=== PATIENT | female | born 1970 | race African-American/Black ===

== ENCOUNTER 2020-10-02 02:57 | Emergency (ER) | payer SELFPAY ==
--- NOTE | 2020-10-02 04:29 | EDPHYS ---
Physician Documentation [facility] Name: Stephie Dillard Age: 49 yrs Sex: Female : 1970 Arrival Date: 10/02/2020 Time: 03:00 Bed 19 Private MD: ED Physician Klaus Rico HPI: 10/02 04:00 This 49 yrs old Black Female presents to ER via Ambulatory with complaints of rn Congestion, cough, Breathing Difficulty. 04:00 The patient has shortness of breath at rest, with light activity. Onset: The rn symptoms/episode began/occurred 1 week(s) ago. Duration: The symptoms are intermittent. The patient's shortness of breath is aggravated by exertion, light activity, is alleviated by rest. Associated signs and symptoms: Pertinent positives: productive cough, Pertinent negatives: chest pain, fever, hemoptysis. Severity of symptoms: At their worst the symptoms were moderate in the emergency department the symptoms have improved. The patient has experienced a previous episode. The patient has not recently seen a physician. Patient reports approximately 1 week of cough congestion and trouble breathing. Patient is a longtime smoker. No diagnosis of COPD. Denies chest pain or hemoptysis. Has taken 2 Covid test in the last 2 weeks that are both negative last one was yesterday. No history of blood clot.. Historical: - Allergies: 03:31 Cipro; em - PMHx: 03:31 Anemia; Anxiety; Hypothyroidism; em - PSHx: 03:31 uterine ablation; em - Immunization history:: Adult Immunizations up to date, Client reports receiving the 2nd dose of the Covid vaccine. - Social history:: Smoking status: Patient reports the use of cigarette tobacco products, smokes one pack cigarettes per day. - Family history:: not pertinent. - Hospitalizations: : No recent hospitalization is reported. ROS: 04:00 Constitutional: Negative for fever, chills, and weight loss, Eyes: Negative for injury, rn pain, redness, and discharge, Neck: Negative for injury, pain, and swelling, Cardiovascular: Negative for chest pain, palpitations, and edema, Respiratory: Positive for cough and shortness of breath Abdomen/GI: Negative for abdominal pain, nausea, vomiting, diarrhea, and constipation, Back: Negative for injury and pain, MS/Extremity: Negative for injury and deformity, Skin: Negative for injury, rash, and discoloration, Neuro: Negative for headache, weakness, numbness, tingling, and seizure. Exam: 04:00 Constitutional: This is a well developed, well nourished patient who is awake, alert, rn and in no acute distress. Head/Face: Normocephalic, atraumatic. Eyes: Periorbital areas with no swelling, redness, or edema. ENT: No stridor Cardiovascular: Regular rate and rhythm . No pulse deficits. Respiratory: Mild tachypnea, no retractions Skin: Warm, dry MS/ Extremity: Pulses equal, no cyanosis. Neuro: Awake and alert, GCS 15 Vital Signs: 03:28 BP 145 / 95; Pulse 91; Resp 20; Temp 97.8; Pulse Ox 98% on R/A; Weight 107.95 kg; em Height 5 ft. 8 in. (172.72 cm); Pain 0/10; 05:04 BP 128 / 93; Pulse 73; Resp 20; Temp 98.6(O); Pulse Ox 97% on R/A; Pain 0/10; bs2 03:28 Body Mass Index 36.19 (107.95 kg, 172.72 cm) em MDM: 03:51 Patient medically screened. rn 04:28 Differential diagnosis: Bronchitis pneumonia, Pneumothorax. Data reviewed: vital signs, rn nurses notes, radiologic studies, plain films, and as a result, I will discharge patient. Counseling: I had a detailed discussion with the patient and/or guardian regarding: the historical points, exam findings, and any diagnostic results supporting the discharge/admit diagnosis, radiology results, the need for outpatient follow up, to return to the emergency department if symptoms worsen or persist or if there are any questions or concerns that arise at home. Response to treatment: the patient's symptoms have mildly improved after treatment, and as a result, I will discharge patient. Special discussion: I discussed with the patient/guardian in detail that at this point there is no indication for admission to the hospital. It is understood, however, that if the symptoms persist or worsen the patient needs to return immediately for re-evaluation. 10/02 03:34 Order name: XRAY Chest (1 view) rn Administered Medications: 04:36 Drug: Xopenex (levalbuterol) 1.25 mg Route: Inhalation; bs2 05:05 Follow up: Response: No adverse reaction bs2 04:36 Drug: Zithromax (azithromycin) 500 mg Route: PO; bs2 05:05 Follow up: Response: No adverse reaction bs2 Disposition Summary: 10/02/20 04:29 Discharge Ordered Location: Home rn Problem: new rn Symptoms: have improved rn Condition: Stable rn Diagnosis - Acute bronchitis, unspecified rn Followup: rn - With: Private Physician - When: As needed - Reason: Recheck today's complaints, Re-evaluation by your physician Discharge Instructions: - Discharge Summary Sheet rn - Acute Bronchitis, Adult rn Forms: - Medication Reconciliation Form rn - Thank You Letter rn - 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 Day 2, 3, 4 , 5 take one (1) tablet once daily.; 6 tablet; Refills: 0, Product Selection Permitted - albuterol sulfate 90 mcg/actuation Inhalation HFA aerosol inhaler - inhale 2 puff by INHALATION route every 4 hours As needed; 1 Pump; Refills: 0, rn Product Selection Permitted Signatures: Dispatcher [employer] Brenton Washburn RN RN em Klaus Rico MD MD rn Smith, Bridget, RN RN bs2 Corrections: (The following items were deleted from the chart) 03:32 03:31 Allergies: unknown antibotic causes facial swelling and muscle spasms; em em
--- NOTE | 2020-10-02 04:29 | ER ---
Nurse's Notes [facility] Name: Stephie Dillard Age: 49 yrs Sex: Female : 1970 Arrival Date: 10/02/2020 Time: 03:00 Bed 19 Private MD: Diagnosis: Acute bronchitis, unspecified Presentation: 10/02 03:28 Chief complaint: Patient states: nasal congestion and productive cough since Tuesday, em had covid test done yesterday evening and it was negative, reports shortness of breath. Coronavirus screen: Client denies travel out of the [place] in the last 14 days. difficulty breathing. Ebola Screen: Patient negative for fever greater than or equal to 101.5 degrees Fahrenheit, and additional compatible Ebola Virus Disease symptoms Patient denies exposure to infectious person. Patient denies travel to an Ebola-affected area in the 21 days before illness onset. No symptoms or risks identified at this time. Initial Sepsis Screen: Does the patient meet any 2 criteria? HR > 90 bpm. No. Patient's initial sepsis screen is negative. Does the patient have a suspected source of infection? Yes: Productive cough/pneumonia. Risk Assessment: Do you want to hurt yourself or someone else? Patient reports no desire to harm self or others. Onset of symptoms was October 02, 2020. 03:28 Method Of Arrival: Ambulatory em 03:28 Acuity: KENJI 3 em Historical: - Allergies: 03:31 Cipro; em - PMHx: 03:31 Anemia; Anxiety; Hypothyroidism; em - PSHx: 03:31 uterine ablation; em - Immunization history:: Adult Immunizations up to date, Client reports receiving the 2nd dose of the Covid vaccine. - Social history:: Smoking status: Patient reports the use of cigarette tobacco products, smokes one pack cigarettes per day. - Family history:: not pertinent. - Hospitalizations: : No recent hospitalization is reported. Screenin:00 Abuse screen: Denies threats or abuse. Denies injuries from another. Nutritional bs2 screening: No deficits noted. Tuberculosis screening: No symptoms or risk factors identified. Fall Risk None identified. Assessment: 04:00 General: Appears in no apparent distress. uncomfortable, obese, well groomed, well bs2 developed, well nourished, Behavior is calm, cooperative, appropriate for age. General: pt states congestion, productive cough and progressing SOB for the last week, pt has had 2 covid test last one yesterday both negative. . Pain: Denies pain. Neuro: No deficits noted. Cardiovascular: Capillary refill < 3 seconds Patient's skin is warm and dry. Respiratory: Airway is patent Respiratory effort is even, unlabored, Respiratory pattern is regular, symmetrical, tachypnea Sputum is thick, yellow Breath sounds are coarse bilaterally. Parent/caregiver reports the patient having shortness of breath at rest on exertion cough that is productive, pain with cough. GI: No signs and/or symptoms were reported involving the gastrointestinal system. : No signs and/or symptoms were reported regarding the genitourinary system. EENT: No signs and/or symptoms were reported regarding the EENT system. Derm: No signs and/or symptoms reported regarding the dermatologic system. Musculoskeletal: No signs and/or symptoms reported regarding the musculoskeletal system. Vital Signs: 03:28 BP 145 / 95; Pulse 91; Resp 20; Temp 97.8; Pulse Ox 98% on R/A; Weight 107.95 kg; em Height 5 ft. 8 in. (172.72 cm); Pain 0/10; 05:04 BP 128 / 93; Pulse 73; Resp 20; Temp 98.6(O); Pulse Ox 97% on R/A; Pain 0/10; bs2 03:28 Body Mass Index 36.19 (107.95 kg, 172.72 cm) em ED Course: 03:00 Patient arrived in ED. es 03:31 Triage completed. em 03:31 Arm band placed on. em 03:51 Klaus Rico MD is Attending Physician. rn 04:00 Patient has correct armband on for positive identification. Bed in low position. Call bs2 light in reach. Side rails up X 1. Pulse ox on. NIBP on. 04:00 No provider procedures requiring assistance completed. bs2 04:13 XRAY Chest (1 view) In Process Unspecified. EDMS 04:36 Iveth Smith, RN is Primary Nurse. bs2 04:57 Patient did not have IV access during this emergency room visit. bs2 Administered Medications: 04:36 Drug: Xopenex (levalbuterol) 1.25 mg Route: Inhalation; bs2 05:05 Follow up: Response: No adverse reaction bs2 04:36 Drug: Zithromax (azithromycin) 500 mg Route: PO; bs2 05:05 Follow up: Response: No adverse reaction bs2 Outcome: 04:29 Discharge ordered by . rn 05:04 Discharged to home ambulatory. bs2 05:04 Condition: improved 05:04 Discharge instructions given to patient, Instructed on discharge instructions, follow up and referral plans. medication usage, Demonstrated understanding of instructions, follow-up care, medications, Prescriptions given X 2. 05:05 Patient left the ED. bs2 Signatures: Dispatcher [employer] Leslee Steve Edgar, RN RN em Klaus Rico MD MD rn Smith, Bridget, RN RN bs2 Corrections: (The following items were deleted from the chart) 03:32 03:31 Allergies: unknown antibotic causes facial swelling and muscle spasms; em em
[2020-10-02] MEDS ORDERED: LEVALBUTEROL 1.25 MG/3 ML NEB ONE (04:53)
[2020-10-02] MEDS ORDERED: AZITHROMYCIN 250 MG TAB ONE (04:53)
[2020-10-02 05:12] VITALS: BP 128/93; TEMP 98.6; O2SAT 97
--- NOTE | 2020-10-02 07:13 | RAD REPORT ---
EXAM DESCRIPTION: RAD - Chest Single View - 10/02/2020 4:13 am CLINICAL HISTORY: COUGH COMPARISON: No comparisons FINDINGS: No evidence of edema or pneumonia. The heart size is within normal limits.No acute osseous abnormality. No significant pleural effusions or pneumothorax. IMPRESSION: No acute cardiopulmonary disease.
== END 2020-10-02 05:05 | disposition home or self-care (01) ==
LOC: ER 02:57
DX: J20.9 Acute bronchitis, unspecified (principal); F17.210 Nicotine dependence, cigarettes, uncomplicated; Z88.1 Allergy status to other antibiotic agents
CPT/HCPCS: 71045; 99284

== ENCOUNTER 2022-03-02 19:46 | Emergency (ER) | payer SELFPAY ==
--- OUTSIDE RECORDS SUMMARY | 2022-03-02 19:48 | XMS REPORT | Continuity of Care Document ---
:1970 Author Organization [facility] t Address [address] [place] [address] Care Team Providers Name Role Phone Trish Burks Attending Clinician Unavailable Problems This patient has no known problems. Allergies, Adverse Reactions, Alerts This patient has no known allergies or adverse reactions. Medications This patient has no known medications. Procedures This patient has no known procedures. Encounters Start End Encounter Admission Attending Care Care Encounter Source Date/Time Date/Time Type Type Clinicians Facility Department ID 2021-04-[address] [facility] [id number] 02 Common 13:02:[id number] [facility] 2021-04-[address] [facility] [id number] 02 Common 12:58:[id number] [facility] Results This patient has no known results.
[2022-03-02] MEDS ORDERED: LIDOCAINE 4% PATCH ONE (20:19)
[2022-03-02] MEDS ORDERED: KETOROLAC 30 MG/ML INJ ONE (20:19)
[2022-03-02] MEDS ORDERED: methocarbamoL 500 MG TAB ONE (20:19)
--- NOTE | 2022-03-02 20:31 | ER ---
Nurse's Notes [facility] Name: Stephie Dillard Age: 51 yrs Sex: Female : 1970 Arrival Date: 03/02/2022 Time: 19:48 Bed 11 Private MD: Diagnosis: Acute bilateral low back pain Presentation: 03/02 19:48 Chief complaint: Patient states: LOWER BACK PAIN X3 WKS BUT GOT SEVERE TODAY. NO TRAUMA jj7 OR FALLS. Coronavirus screen: At this time, the client does not indicate any symptoms associated with coronavirus-19. Ebola Screen: No symptoms or risks identified at this time. Initial Sepsis Screen: Does the patient meet any 2 criteria? No. Patient's initial sepsis screen is negative. Does the patient have a suspected source of infection? No. Patient's initial sepsis screen is negative. Risk Assessment: Do you want to hurt yourself or someone else? Patient reports no desire to harm self or others. Onset of symptoms was March 02, 2022. 19:48 Method Of Arrival: Ambulatory [facility] 19:48 Acuity: KENJI 4 jj7 Triage Assessment: 19:54 General: Appears in no apparent distress. uncomfortable, Behavior is calm, cooperative, jj7 appropriate for age. Pain: Complains of pain in coccyx, left lower back and right lower back Pain currently is 10 out of 10 on a pain scale. 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 - Social history:: Smoking status: Patient reports the use of cigarette tobacco products, smokes one pack cigarettes per day. Patient uses alcohol, occasionally. Patient/guardian denies using street drugs. Screenin:38 [facility] ED Fall Risk Assessment (Adult) History of falling in the last 3 months, tw5 including since admission No falls in past 3 months (0 pts). Humpty Dumpty Scale Fall Assessment Tool (age< 18yrs) Age 13 years and above (1 pt). Abuse screen: Denies threats or abuse. Denies injuries from another. Nutritional screening: No deficits noted. Tuberculosis screening: No symptoms or risk factors identified. Fall Risk No fall in past 12 months (0 pts). Assessment: 20:32 General: Appears in no apparent distress. Behavior is calm, cooperative, appropriate tw5 for age. Pain: Complains of pain in low back area and right leg Pain currently is 10 out of 10 on a pain scale. Neuro: Level of Consciousness is awake, alert, obeys commands, Oriented to person, place, time, situation. Cardiovascular: Heart tones S1 S2. Respiratory: Airway is patent Trachea midline Respiratory effort is even, unlabored. Musculoskeletal: 20:39 General: Reports 'I am already feeling some relief.". tw5 Vital Signs: 19:48 BP 169 / 84; Pulse 77; Resp 17; Temp 98.7; Pulse Ox 100% ; Weight 117.03 kg; Height 5 jj7 ft. 8 in. (172.72 cm); Pain 10/10; 19:48 Body Mass Index 39.23 (117.03 kg, 172.72 cm) jj7 ED Course: 19:48 Patient arrived in ED. jj6 19:53 Sandrine Reynolds MD is Attending Physician. sd2 19:53 Triage completed. jj7 19:54 Arm band placed on right wrist. jj7 20:12 Tiana Auguste is Primary Nurse. tw5 20:38 Patient has correct armband on for positive identification. tw5 20:38 No provider procedures requiring assistance completed. Patient did not have IV access tw5 during this emergency room visit. Administered Medications: 20:15 Not Given (Physician Discretion): tiZANidine 4 mg PO once sd2 20:31 Drug: Ketorolac 60 mg Route: IM; Site: left ventrogluteal; tw5 20:39 Follow up: Response: No adverse reaction; Pain is decreased tw5 20:31 Drug: Lidoderm Patch 5 % (700 mg/patch) 1 patches Route: Topical; Site: affected area; tw5 20:39 Follow up: Response: No adverse reaction; Pain is decreased tw5 20:31 Drug: Methocarbamol 1000 mg Route: PO; tw5 20:38 Follow up: Response: No adverse reaction tw5 Medication: 20:38 VIS not applicable for this client. tw5 Outcome: 20:31 Discharge ordered by . juan c2 20:38 Discharged to home ambulatory. tw 20:38 Condition: good 20:38 Condition: improved 20:38 Discharge instructions given to 20:38 Discharge instructions given to patient, Instructed on discharge instructions, follow up and referral plans. medication usage, Demonstrated understanding of instructions, follow-up care, medications, Prescriptions given X 2. 20:39 Patient left the ED. 5 Signatures: Tiana Auguste tw5 Luz Quintreos jj6 Sandrine Reynolds MD MD sd2 Ramana Dumont RN RN jj7
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
[2022-03-02 20:47] VITALS: BP 169/84; TEMP 98.7; O2SAT 100
== END 2022-03-02 20:39 | disposition home or self-care (01) ==
LOC: ER 19:46
DX: M54.50 Low back pain, unspecified (principal); Z88.1 Allergy status to other antibiotic agents
CPT/HCPCS: 96372; 99283; J2001

== ENCOUNTER 2022-06-02 11:32 | Emergency (ER) | payer SELFPAY ==
--- OUTSIDE RECORDS SUMMARY | 2022-06-02 11:41 | XMS REPORT | Continuity of Care Document ---
:1970 Author Organization [facility] t Address [address] [place] [address] Care Team Providers Name Role Phone Trish [...] Facility Department ID 2021-04-08 Outpatient SHAHIDA Burks [facility] [id number] 02 Common 13:02:18 Trish [id number] [facility] 2021-04-08 Outpatient SHAHIDA Burks [facility] [id number] 02 Common 12:58:02 Trish [id number] [facility] Results This patient has no known results.
[2022-06-02 13:08] LABS: Absolute Lymphocytes (CBC) 1.8 K/uL (0.7-4.9); Lymphocytes % 14.2 % (15.3-44.8); MCV 62.3 fL (80-100); MPV 8.3 fL (7.6-11.3); RBC Red Blood Cell Count 3.05 M/uL (3.86-4.86)
[2022-06-02 13:14] LABS: Potassium 4.2 mEq/L (3.5-5.1)
[2022-06-02] MEDS ORDERED: CYCLOBENZAPRINE 10 MG TAB ONE (13:46)
[2022-06-02] MEDS ORDERED: NA CHLORIDE 0.9% 500 ML ONE (14:55)
--- NOTE | 2022-06-02 15:36 | RAD REPORT ---
EXAM DESCRIPTION: US - Transvaginal Study Probe - 06/02/2022 2:56 pm CLINICAL HISTORY: VAGINAL BLEEDING COMPARISON: Transvaginal Study Probe dated 09/17/2015 TECHNIQUE: Sonographic grayscale and color flow images of the pelvis, performed through transvagina l and transabdominal approaches. FINDINGS: The uterus is normal in size, measuring 11.7 centimeter in length. Uterus demonstrates bul ky configuration, with multiple fibroids, the largest present posteriorly, measuring up to 4.1 centim eter. Few nabothian cysts. The endometrial stripe measures 7 millimeter in thickness, slightly above the limit of normal, a cassi ent's post menopausal Difficult visualization of the right ovary. The left ovary measures 3.8 x 3.2 x 2.9 centimeter. No ov dee or parovarian lesions. No suspicious adnexal masses. Incidentally noted small right ovarian sep tated anechoic cyst, measuring 3.6 x 2.9 x 2.2 centimeter Normal Doppler blood flow was demonstrated to the left ovary. No significant pelvic ascites. An exophytic bladder mass is present along the posterior wall, measuring 2.7 x 2.1 x 3.6 centimeter, with vascularity along its pedicle. IMPRESSION: Fibroid uterus. Mildly thickened endometrium, if patient is postmenopausal, measuring 7 millimeter. Please correlate clinically, and consider additional evaluation by soft tissue sampling if clinically indicated. Exam is limited by nonvisualization of the right ovary. Dominant anechoic left ovarian septated 3.6 c entimeter cyst, favored to be physiologic, however can be followed by pelvic ultrasound in 6 months t o ensure resolution. Exophytic posterior wall urinary bladder mass, concerning for urothelial malignancy.
[2022-06-02 16:30] LABS: Anisocytosis 2+; Blood Morphology Comment NOTED (NOT SEEN); Hypochromasia 2+; Platelet Estimate ADEQ; White Blood Cell Scan OK (OK)
--- NOTE | 2022-06-02 19:35 | EDPHYS ---
Physician Documentation [facility] Name: Stephie Dillard Age: 51 yrs Sex: Female : 1970 Arrival Date: 06/02/2022 Time: 11:36 Bed 4 Private MD: ED Physician Jose Armando Silverman HPI: 06/02 15:43 This 51 yrs old Black Female presents to ER via Ambulatory with complaints of kb Dizziness, Nausea, Vaginal Bleeding. 15:44 The patient presents with vaginal bleeding that is moderate, with clots. Onset: The kb symptoms/episode began/occurred 11 day(s) ago. Modifying factors: The symptoms are alleviated by nothing, the symptoms are aggravated by nothing. Associated signs and symptoms: Pertinent positives: nausea, Dizziness. Severity of symptoms: At their worst the symptoms were moderate, in the emergency department the symptoms are unchanged. The patient has experienced similar episodes in the past. The patient has not recently seen a physician. Patient reports vaginal bleeding with clots for 11 days. States she has had dizziness and nausea associated with it. Reports she has had heavy periods her entire life notably getting worse. Reports has been told that she has fibroids and a mass in her ureter and needs to have surgery but she is afraid of having surgery so she has not gone back. Reports they placed an IUD 2 years ago to help with the bleeding but it has not made it better.. CARDIOLOGY SPECIALIST: 12:53 LMP N/A - currently on menstrual cycle kc6 Historical: - Allergies: 11:44 Cipro; hb - PMHx: 11:44 Anemia; Anxiety; Hypothyroidism; hb - PSHx: 11:44 uterine ablation; hb - Immunization history:: Adult Immunizations unknown. - Social history:: Smoking status: unknown. ROS: 15:38 Constitutional: Negative for fever, chills, and weight loss. kb 15:38 Abdomen/GI: Positive for nausea, Negative for abdominal pain. 15:38 : Positive for vaginal bleeding. 15:38 Neuro: Positive for dizziness. 15:38 All other systems are negative. Exam: 13:37 Constitutional: This is a well developed, well nourished patient who is awake, alert, kb and in no acute distress. Head/Face: Normocephalic, atraumatic. ENT: Moist Mucous membranes Cardiovascular: Regular rate and rhythm with a normal S1 and S2. No gallops, murmurs, or rubs. No pulse deficits. Respiratory: Respirations even and unlabored. No increased work of breathing. Talking in full sentences Abdomen/GI: Soft, non-tender. No distention Skin: Warm, dry with normal turgor. Normal color. MS/ Extremity: Pulses equal, no cyanosis. Neurovascular intact. Full, normal range of motion. Neuro: Awake and alert, GCS 15, oriented to person, place, time, and situation. Moves all extremities. Normal gait. 13:37 ECG was reviewed by the Attending Physician. Vital Signs: 11:42 BP 140 / 69; Pulse 100; Resp 18; Temp 97.2; Pulse Ox 100% on R/A; Weight 102.06 kg; hb Height 5 ft. 9 in. ; Pain 0/10; 12:54 BP 125 / 66; Pulse 78; Resp 18 S; Pulse Ox 100% on R/A; kc6 13:47 BP 118 / 67; Pulse 94; Resp 18 S; Pulse Ox 100% on R/A; kc6 15:05 BP 124 / 69; Pulse 75; Resp 16 S; Pulse Ox 100% on R/A; kc6 16:00 BP 126 / 72; Pulse 68; Resp 17; Pulse Ox 100% ; kc6 17:00 BP 126 / 74; Pulse 97; Resp 16; Pulse Ox 100% ; kc6 17:50 BP 129 / 70; Pulse 95; Resp 16; Pulse Ox 100% ; kc6 19:22 BP 122 / 74; Pulse 88; Resp 16 S; Pulse Ox 100% on R/A; ha1 11:42 Body Mass Index 33.23 (102.06 kg, 175.26 cm) hb 11:42 Pain Scale: Adult hb MDM: 11:46 Patient medically screened. kb 15:39 Differential diagnosis: generalized weakness, hypovolemia, idiopathic dizziness, kb Anemia. Data reviewed: vital signs, nurses notes. Consideration of Admission/Observation Transfer considered due to lack of gynecologic services at this facility. Patient request blood transfusion and discharge. Patient states she does not want to be transferred at this time. States she is aware that she needs a hysterectomy and she is not prepared to do that at this time so she does not see a need for admission or transfer. Patient educated on risks. Verbal understanding received.. Counseling: I had a detailed discussion with the patient and/or guardian regarding: the historical points, exam findings, and any diagnostic results supporting the discharge/admit diagnosis, lab results, radiology results, the need for outpatient follow up, an OB/Gyne specialist, to return to the emergency department if symptoms worsen or persist or if there are any questions or concerns that arise at home. ED course: Patient has decided to leave our facility AGAINST MEDICAL ADVICE. I have assessed the patient's ability to make an informed decision and it is my opinion at this time that the patient has the medical decision-making capacity to comprehend information regarding current medical condition and appreciates the impact of the disease or condition and the consequences of various options for treatment, including foregoing treatment. The patient possesses the ability to evaluate all treatment options, compare the risk and benefits of each option, communicate choice and is able to make rational choices. I have explained to the patient further testing, treatment, and evaluation I would like to perform during the current emergency department visit as well as any possible alternatives that could be accomplished in a timely manner. I have outlined the possible risk of foregoing any or all of these interventions and the patient understands and acknowledges that the decision to leave may result in undesirable consequences such as , permanent disability, and/or loss of current lifestyle. Even though leaving AMA a is not ideal, I have instructed the patient to follow any discharge instructions given, take any medications prescribed and resume care as soon as possible with another provider. Additionally, I have clearly stated that the patient is welcome to return at any time to continue care at our facility. . 16:32 Transition of care: After a detail discussion of the patient's case, care is kb transferred to Zachariah MENON. 06/02 11:47 Order name: CBC with Diff; Complete Time: 16:32 kb 06/02 16:26 Interpretation: Normal except: WBC 12.80; RBC 3.05; HGB 5.5; HCT 19.0; MCV 62.3; MCH cp 18.1; MCHC 29.0; RDW 22.8; CHARLES% 82.2; LYM% 14.2; MN% 2.7; NEUT A 10.5. 06/02 11:47 Order name: Basic Metabolic Panel; Complete Time: 13:17 kb 06/02 13:11 Order name: Type And Screen 06/02 13:23 Order name: Magnesium; Complete Time: 14:09 kb 06/02 13:31 Order name: Bb Add On eb 06/02 13:45 Order name: Packed RBC Leukored EDPA 06/02 16:30 Order name: CBC Smear Scan; Complete Time: 16:32 EDPA 06/02 13:16 Order name: US Transvaginal Study (Probe); Complete Time: 15:38 kb 06/02 13:11 Order name: EKG; Complete Time: 13:12 kb 06/02 11:47 Order name: IV Start; Complete Time: 12:52 kb 06/02 13:11 Order name: EKG - Nurse/Tech; Complete Time: 13:38 kb EC:37 Rate is 85 beats/min. Rhythm is regular. QRS [place] is Normal. DC interval is normal at kb 136 msec. QRS interval is normal at 80 msec. QT interval is normal at 414 msec. Administered Medications: 13:46 Drug: Cyclobenzaprine PO 10 mg Route: PO; kc6 14:46 Follow up: Response: No adverse reaction kc6 Disposition Summary: 06/02/22 19:34 Discharge Ordered Location: Home cp Condition: Stable cp Diagnosis - Abnormal uterine and vaginal bleeding, unspecified cp - Anemia, unspecified cp - Malignant neoplasm of bladder, unspecified cp Followup: kb - With: Emergency Department - When: As needed - Reason: Worsening of condition Followup: kb - With: Private Physician - When: 2 - 3 days - Reason: Recheck today's complaints, Continuance of care, Re-evaluation by your physician Discharge Instructions: - Discharge Summary Sheet kb - Abnormal Uterine Bleeding, [id number] kb - Blood Transfusion, Adult, Care After, [id number] kb - Abnormal Uterine Bleeding cp - Uterine Fibroids cp Forms: - Medication Reconciliation Form cp - Thank You Letter cp - Antibiotic Education cp - Prescription Opioid Use cp Prescriptions: - medroxyprogesterone 10 mg Oral tablet - take 1 tablet by ORAL route daily for 7 days; 7 tablet; Refills: 0, Product cp Selection Permitted - Cyclobenzaprine 10 mg Oral Tablet - take 1 tablet by ORAL route every 8 hours As needed; 15 tablet; Refills: 0, cp Product Selection Permitted Signatures: Dispatcher [employer] [facility] Joyce Ro, EMMANUELLE JERRY-Zachariah Garcia PA PA cp Baxter, Heather, RN RN hb Sintia Segovia, RN RN ha1 Ashly Frye, RN RN kc6 Jayna Diaz, MICK PADiamondC sb4
--- NOTE | 2022-06-02 19:35 | ER ---
Nurse's Notes [facility] Name: Stephie Dillard Age: 51 yrs Sex: Female : 1970 Arrival Date: 06/02/2022 Time: 11:36 Bed 4 Private MD: Diagnosis: Abnormal uterine and vaginal bleeding, unspecified;Anemia, unspecified;Malignant neoplasm of bladder, unspecified Presentation: 06/02 11:42 Chief complaint: Heavy vaginal bleeding with clots x 11 days, dizziness, nausea, and hb congestion x 3 days. Hx of anemia with blood transfusions. Coronavirus screen: At this time, the client does not indicate any symptoms associated with coronavirus-19. Ebola Screen: No symptoms or risks identified at this time. Initial Sepsis Screen: Does the patient meet any 2 criteria? No. Patient's initial sepsis screen is negative. Does the patient have a suspected source of infection? No. Patient's initial sepsis screen is negative. Risk Assessment: Do you want to hurt yourself or someone else? Patient reports no desire to harm self or others. Onset of symptoms was May 22, 2022. 11:42 Method Of Arrival: Ambulatory hb 11:42 Acuity: KENJI 3 hb HOISTING ENGINEER: 12:53 LMP N/A - currently on menstrual cycle kc6 Historical: - Allergies: 11:44 Cipro; hb - PMHx: 11:44 Anemia; Anxiety; Hypothyroidism; hb - PSHx: 11:44 uterine ablation; hb - Immunization history:: Adult Immunizations unknown. - Social history:: Smoking status: unknown. Screenin:52 [facility] ED Fall Risk Assessment (Adult) History of falling in the last 3 months, kc6 including since admission No falls in past 3 months (0 pts) Confusion or Disorientation No (0 pts) Intoxicated or Sedated No (0 pts) Impaired Gait No (0 pts) Mobility Assist Device Used No (0 pt) Altered Elimination No (0 pt) Score/Fall Risk Level 0 - 2 = Low Risk Oriented to surroundings, Maintained a safe environment, Educated pt \\T\\ family on fall prevention, incl call for assistance when getting out of bed, Assessed \\T\\ reinforced patient's understanding of fall precautions, Hourly rounding (assess needs \\T\\ fall precautionary measures) done. Abuse screen: Denies threats or abuse. Denies injuries from another. Nutritional screening: No deficits noted. Tuberculosis screening: No symptoms or risk factors identified. Assessment: 12:52 General: Appears in no apparent distress. uncomfortable, Behavior is calm, cooperative, kc6 appropriate for age. Pain: Denies pain. Neuro: Graham Agitation-Sedation Scale (RASS): 0 - Alert and Calm Level of Consciousness is awake, alert, obeys commands, Oriented to person, place, time, situation, Appropriate for age. Cardiovascular: Capillary refill < 3 seconds. Respiratory: Airway is patent Trachea midline Respiratory effort is even, unlabored, Respiratory pattern is regular, symmetrical, Breath sounds are clear bilaterally. GI: Abdomen is flat, non-distended, Bowel sounds present X 4 quads. Abd is soft and non tender X 4 quads. Reports nausea, Patient currently denies diarrhea, vomiting. : Reports vaginal bleeding that is heavy flow. EENT: No signs and/or symptoms were reported regarding the EENT system. Derm: No signs and/or symptoms reported regarding the dermatologic system. Skin is intact, Skin is pink, warm \\T\\ dry. Musculoskeletal: No signs and/or symptoms reported regarding the musculoskeletal system. Circulation, motion, and sensation intact. Capillary refill < 3 seconds, Range of motion: intact in all extremities. 13:45 Reassessment: Patient appears in no apparent distress at this time. No changes from kc6 previously documented assessment. Patient and/or family updated on plan of care and expected duration. Pain level reassessed. Patient is alert, oriented x 3, equal unlabored respirations, skin warm/dry/pink. 14:04 Reassessment: pt to ultrasound via wheelchair. kc6 14:45 Reassessment: Patient appears in no apparent distress at this time. No changes from kc6 previously documented assessment. Patient and/or family updated on plan of care and expected duration. Pain level reassessed. Patient is alert, oriented x 3, equal unlabored respirations, skin warm/dry/pink. 15:09 Reassessment: pt returned from ultrasound vis wheelchair. sent request for blood. kc6 15:25 Reassessment: please refer to transfusion record flow sheet for vital signs. kc6 15:45 Reassessment: Patient appears in no apparent distress at this time. No changes from kc6 previously documented assessment. Patient and/or family updated on plan of care and expected duration. Pain level reassessed. Patient is alert, oriented x 3, equal unlabored respirations, skin warm/dry/pink. 16:15 Reassessment: Patient appears in no apparent distress at this time. No changes from kc6 previously documented assessment. Patient and/or family updated on plan of care and expected duration. Pain level reassessed. Patient is alert, oriented x 3, equal unlabored respirations, skin warm/dry/pink. 17:15 Reassessment: Patient appears in no apparent distress at this time. No changes from kc6 previously documented assessment. Patient and/or family updated on plan of care and expected duration. Pain level reassessed. Patient is alert, oriented x 3, equal unlabored respirations, skin warm/dry/pink. 18:15 Reassessment: Patient appears in no apparent distress at this time. No changes from kc6 previously documented assessment. Patient and/or family updated on plan of care and expected duration. Pain level reassessed. Patient is alert, oriented x 3, equal unlabored respirations, skin warm/dry/pink. 19:18 General: Appears comfortable, Behavior is calm, cooperative. Pain: Denies pain. Neuro: ha1 Level of Consciousness is awake, alert, obeys commands, Oriented to person, place, time, situation. Cardiovascular: Capillary refill < 3 seconds Patient's skin is warm and dry. Respiratory: Airway is patent Respiratory effort is even, unlabored, Respiratory pattern is regular, symmetrical. GI: Abdomen is flat, Bowel sounds present X 4 quads. Reports nausea. : Reports vaginal bleeding that is heavy flow. Derm: Skin is pink, warm \\T\\ dry. Musculoskeletal: Circulation, motion, and sensation intact. Range of motion: intact in all extremities. 19:25 Reassessment: completed blood transfusion. Care provider in the room explaining the ha1 need for transfer patient states " I want to go home, I do not want to be transfer". Vital Signs: 11:42 BP 140 / 69; Pulse 100; Resp 18; Temp 97.2; Pulse Ox 100% on R/A; Weight 102.06 kg; hb Height 5 ft. 9 in. ; Pain 0/10; 12:54 BP 125 / 66; Pulse 78; Resp 18 S; Pulse Ox 100% on R/A; kc6 13:47 BP 118 / 67; Pulse 94; Resp 18 S; Pulse Ox 100% on R/A; kc6 15:05 BP 124 / 69; Pulse 75; Resp 16 S; Pulse Ox 100% on R/A; kc6 16:00 BP 126 / 72; Pulse 68; Resp 17; Pulse Ox 100% ; kc6 17:00 BP 126 / 74; Pulse 97; Resp 16; Pulse Ox 100% ; kc6 17:50 BP 129 / 70; Pulse 95; Resp 16; Pulse Ox 100% ; kc6 19:22 BP 122 / 74; Pulse 88; Resp 16 S; Pulse Ox 100% on R/A; ha1 11:42 Body Mass Index 33.23 (102.06 kg, 175.26 cm) hb 11:42 Pain Scale: Adult hb ED Course: 11:36 Patient arrived in ED. am2 11:42 Joyce Ro FNP-C is PHCP. kb 11:42 Jose Armando Silverman MD is Attending Physician. kb 11:44 Triage completed. hb 11:44 Arm band placed on. hb 12:35 Ashly Frye, LAUREN is Primary Nurse. kc6 12:52 Basic Metabolic Panel Sent. kc6 12:52 CBC with Diff Sent. kc6 12:52 Inserted saline lock: 20 gauge in right antecubital area, using aseptic technique. kc6 Blood collected. 12:53 Patient has correct armband on for positive identification. Bed in low position. Call kc6 light in reach. Side rails up X2. Adult w/ patient. 14:58 US Transvaginal Study (Probe) In Process Unspecified. EDMS 16:14 PHCP role handed off by Joyce Ro FNP-C cp 16:14 Zachariah Ramos PA is PHCP. cp 19:51 No provider procedures requiring assistance completed. IV discontinued, intact, ha1 bleeding controlled, No redness/swelling at site. Pressure dressing applied. Administered Medications: 13:46 Drug: Cyclobenzaprine PO 10 mg Route: PO; kc6 14:46 Follow up: Response: No adverse reaction kc6 Medication: 19:52 VIS not applicable for this client. ha1 Outcome: 19:34 Discharge ordered by . cp 19:51 Discharged to home ambulatory, with family. ha1 19:51 Condition: stable 19:51 Discharge instructions given to patient, family, Instructed on discharge instructions, follow up and referral plans. medication usage, Demonstrated understanding of instructions, follow-up care, medications, Prescriptions given X 2. 19:52 Patient left the ED. ha1 Signatures: Dispatcher [employer] EDJoyce Mejia FNP-C CORPORATE TRAINER-CkZachariah Hassan PA PA cp Baxter, Heather, LAUREN RN Aubree Bustillo am2 Sintia Segovia RN RN ha1 Ashly Frye RN RN kc6 Corrections: (The following items were deleted from the chart) 18:11 17:50 Reassessment: Patient appears in no apparent distress at this time. No changes kc6 from previously documented assessment. kc6
[2022-06-02 20:10] VITALS: TEMP 97.2; O2SAT 100
[2022-06-02 20:26] VITALS: BP 122/74
--- NOTE | 2022-06-03 12:16 | EKG ---
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
== END 2022-06-02 19:52 | disposition home or self-care (01) ==
LOC: ER 11:32
DX: N93.9 Abnormal uterine and vaginal bleeding, unspecified (principal); D64.9 Anemia, unspecified; C67.9 Malignant neoplasm of bladder, unspecified
CPT/HCPCS: 36415; 76830; 80048; 83735; 85025; 86850; 86900; 86901; 93005; J7050; P9016

== ENCOUNTER 2024-12-18 10:46 | Day surgery (SDC) | payer OTHER ==
[2024-12-18] MEDS: Ringers Lactate 1,000 ML IV ONE (12:00)
[2024-12-18] MEDS ORDERED: ONDANSETRON 4 MG/2 ML VIAL ONE (13:10)
[2024-12-18] MEDS ORDERED: MIDAZOLAM HCL 2 MG/2 ML INJ ONE (13:10)
[2024-12-18] MEDS ORDERED: FENTANYL CITR 100 MCG/2 ML ONE (13:10)
[2024-12-18] MEDS ORDERED: SUCCINYLCHOLINE 200 MG/10 ML 200 MG/10 ML SYR IV ONE (13:10)
[2024-12-18] MEDS ORDERED: LIDOCAINE 1% MPF 5 ML VIAL ONE (13:10)
[2024-12-18] MEDS: CEFTRIAXONE 1000 MG/VIAL ONE (13:43)
[2024-12-18] MEDS ORDERED: PHENAZOPYRIDINE 100MG TAB PO ONE (14:25)
[2024-12-18] MEDS ORDERED: CODEINE 30MG/APAP 300MG TAB PO PRN (14:25)
--- NOTE | 2024-12-18 14:45 | P.OP ---
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 Because of the desire for the neobladder and the proximity of the initial tumor into the trigone, biopsies and reassessment of the bladder neck were recommended to determine if she was a candidate. Procedure note: The patient was consented in the preoperative holding area before being transferred to the operative suite where general anesthesia was induced. She was given ceftriaxone 1 g IV antimicrobial prophylaxis, and pneumoboots were provided for DVT prophylaxis. She was placed in the lithotomy position, padded and secured to the table appropriately. Her genitalia was prepped with Hibiclens and she was draped in standard fashion. The case was begun using a 22 Arabic rigid cystoscope to traverse the urethra and into the bladder with ease. The bladder was decompressed of fluid and urine and then surveyed in its entirety. While there was evidence of some chronic cystitis associated with her known preoperative urinary tract infection for which she was being treated with nitrofurantoin and had received a dose of ceftriaxone yesterday, the only other lesion of suspicion was in the right lateral wall of the bladder posterior to the right ureteral orifice, occupying an area about 1 cm in maximal diameter. The bladder neck was completely free of mucosal lesion or erythema. As a result, I utilized cold cup biopsy forceps to sample across the entirety of the erythematous patch where the original resected tumor existed, and this was sent for pathologic analysis as right posterior lateral wall bladder biopsy. I then took additional biopsies from the bladder neck region distal to the trigone on the right and the left side, which was sent for pathologic analysis as bladder neck posterior bladder biopsies. I then fulgurated the base of each of these lesions, and ensured the bladder was hemostatic before removing the cystoscope after decompressing her bladder. She was then awakened from general anesthesia before being transferred to a stretcher. She was then transferred to the recovery room in good condition. Complications: None Discharge disposition: She is currently scheduled for radical cystectomy with possible orthotopic neobladder urinary diversion next week. We will discuss the pathology of today's biopsy perhaps on Tuesday, if the results are available, or if not, next Tuesday in preparation. We will forward these results also to Dr. Escalante for review since he will be doing the urinary diversion.
[2024-12-18 15:22] VITALS: BP 145/79; TEMP 97.1; O2SAT 97
[2024-12-18 16:00] LABS: Urine Specific Gravity/Preg 1.015 (1.005-1.030)
== END 2024-12-18 15:15 | disposition home or self-care (01) ==
LOC: OR 10:46
PROVIDERS: ATTEND Urology
PROC: 0TBB8ZX Excision of Bladder, Via Natural or Artificial Opening Endoscopic, Diagnostic (ICD-10-PCS; principal; 2024-12-18 14:15)
DX: C67.9 Malignant neoplasm of bladder, unspecified (principal)
CPT/HCPCS: 93005; 81025; 88305; 52204; J2704; J2003; J2250; J3010; J1100; J2405; J7120; J0696; J0330